=== PATIENT | female | born 1965 | race Two or more races ===

== ENCOUNTER 2017-12-24 06:20 | Inpatient (IN) | payer OTHER ==
[2017-12-12 15:35] LABS: BASOPHILS % (AUTO) 1.3 % (0.0-2.0); EOSINOPHILS % (AUTO) 2.2 % (0.0-3.0); HEMATOCRIT 44.9 % (37.0-47.0); HEMOGLOBIN 15.7 G/DL (12.0-16.0); LYMPHOCYTES % (AUTO) 31.1 % (20.0-45.0); MEAN CORPUSCULAR VOLUME 87 FL (80-99); MONOCYTES % (AUTO) 6.4 % (1.0-10.0); PLATELET COUNT 229 K/UL (150-450); RED BLOOD COUNT 5.17 M/UL (4.20-5.40); RED CELL DISTRIBUTION WIDTH 12.3 % (11.6-14.8); WHITE BLOOD COUNT 5.1 K/UL (4.8-10.8)
[2017-12-12 15:37] LABS: APPEARANCE,URINE CLEAR; BILIRUBIN, URINE NEGATIVE (NEGATIVE); COLOR,URINE PALE YELLOW; GLUCOSE, URINE (UA) 4+ (NEGATIVE); KETONES,URINE NEGATIVE (NEGATIVE); LEUKOCYTE ESTERASE ,URINE NEGATIVE (NEGATIVE); NITRITE,URINE NEGATIVE (NEGATIVE); PH,URINE 7 (4.5-8.0); PROTEIN,URINE NEGATIVE (NEGATIVE); UROBILINOGEN,URINE NORMAL MG/DL (0.0-1.0)
[2017-12-12 16:07] LABS: ALANINE AMINOTRANSFERASE 40 U/L (12-78); ALBUMIN 4.9 G/DL (3.4-5.0); ALBUMIN/GLOBULIN RATIO 1.3 (1.0-2.7); ALKALINE PHOSPHATASE 80 U/L (46-116); ANION GAP 9 mmol/L (5-15); ASPARTATE AMINO TRANSFERASE 17 U/L (15-37); BILIRUBIN,TOTAL 0.2 MG/DL (0.2-1.0); BLOOD UREA NITROGEN 10 mg/dL (7-18); CALCIUM 10.5 MG/DL (8.5-10.1); CARBON DIOXIDE 30 MMOL/L (21-32); CHLORIDE 98 MMOL/L (98-107); CREATININE 0.8 MG/DL (0.55-1.30); INR 0.9 (0.9-1.1); PHOSPHORUS 4.1 MG/DL (2.5-4.9); POTASSIUM 4.3 MMOL/L (3.5-5.1); SODIUM 137 MMOL/L (136-145)
--- NOTE | 2017-12-12 16:59 | Diagnostic Imaging Report ---
Indication: Dyspnea Comparison: None 2 views of the chest obtained. Findings: No definite infiltrate or pulmonary vascular congestion identified. The heart is borderline enlarged. The aorta is mildly enlarged consistent with atherosclerotic vascular disease. Lung volumes are low. The bones are unremarkable. Cholecystectomy clips noted. Impression: No acute disease
[~2017-12-24] VITALS: Ht 157.5 cm; Wt 74.8 kg
[2017-12-24] VITALS (13 sets, daily range): BP systolic 113–139; BP diastolic 46–80
[~2017-12-24 06:20] MED LIST: Acetaminophen (Non formulary) 100 ML IV ONE; Atropine Inj 1mg/10ml Syr IV PRN; DiphenhydrAMINE 50mg/ml Inj IVP PRN; HYDROcodone/Acetamin 7.5/325 tab ORAL PRN; Hydromorphone 0.5mg/0.5ml inj IVP PRN; Ketorolac 30mg Inj IV PRN; LORazepam Inj 2mg/ml 1ml IV PRN; LR 1000ml 1,000 ML IVLG SCH; Labetalol 5mg/ml 20ml vial IV PRN; Midazolam 2mg/2ml Inj IVP PRN; Norco 5mg/325mg tab ORAL PRN; fentaNYL 100 mcg/2 mL IV PRN; oxyCODONE HCL/Acetaminophen 5/325mg ORAL PRN
[2017-12-24] MEDS ORDERED: ceFAZolin sod 2 GM in D5W 110 ML IVPB ONE (07:00)
[2017-12-24] MEDS ORDERED: Bacitracin Oint 15gm Tube TOPIC ONE (07:04)
[2017-12-24] MEDS ORDERED: Gelfoam Absorbable 1gm powder pkt TOPIC ONE (07:04)
[2017-12-24] MEDS ORDERED: Thrombin 5000 units spray kit TOPIC ONE (07:04)
[2017-12-24] MEDS ORDERED: Thrombin 5000 units TOPIC ONE (07:04)
[2017-12-24] MEDS ORDERED: Vancomycin 1gm inj IVPB ONE (07:04)
[2017-12-24] MEDS ORDERED: EPINEPHrine 1mg/1ml Amp ONE (07:05)
[2017-12-24] MEDS ORDERED: Bupivacaine 0.5% Inj 30 ml vial INJ ONE (07:05)
[2017-12-24] MEDS ORDERED: Bacitracin 50000 Units Vial ONE (07:05)
[2017-12-24] MEDS ORDERED: METFORMIN HCL1000 M3 PO (07:09)
[2017-12-24] MEDS ORDERED: AMITRIPTYLINE100 MG ORAL (07:09)
[2017-12-24] MEDS ORDERED: JARDIANCE PO (07:09)
[2017-12-24] MEDS ORDERED: LISINOPRIL10 MG ORAL (07:09)
[2017-12-24] MEDS ORDERED: GLIPIZIDE10 MG PO (07:09)
--- NOTE | 2017-12-24 07:25 | Anethesia Preoperative Eval ---
Anesthesia Pre-op PMH/ROS General Date of Evaluation: Dec 24, 2017 Time of Evaluation: 08:11 Anesthesiologist: Amanda ASA Score: ASA 3 Mallampati Score Class I : Soft palate, uvula, fauces, pillars visible Class II: Soft palate, uvula, fauces visible Class III: Soft palate, base of uvula visible Class IV: Only hard plate visible Mallampati Classification: Class II Surgeon: Jayesh Diagnosis: Neck Pain Surgical Procedure: PSF C4-7, L ForaminotomyC4-5, C6-7 Anesthesia History: none Family History: no anesthesia problems Allergies: Coded Allergies: CODEINE (Verified Allergy, Severe, 12/24/17) itching, vomiting LATEX (Verified Allergy, Severe, 12/23/17) SKIN RASH,HIVES PENICILLINS (Verified Allergy, Severe, 12/23/17) RASH,ITCHING Medications: see eMAR Past Medical History Cardiovascular: Reports: HTN, other - HL Neurologic/Psychiatric: Reports: other - Migranes Endocrine: Reports: DM Other: obesity PSxH Narrative: Cholecystectomy, Uterine Polyp, C/S Anesthesia Pre-op Phys. Exam Physician Exam Vital Signs Date Time Temp Pulse Resp B/P (MAP) Pulse Ox O2 Delivery O2 Flow Rate FiO2 12/24/17 07:34 97.0 65 19 125/62 96 Room Air 97.0 Constitutional: NAD Neurologic: CN 2-12 intact Cardiovascular: RRR Respiratory: CTA Gastrointestinal: S/NT/ND Airway Exam Mallampati Score: Class II MO: full ROM: limited Teeth: intact Anesthesia Pre-op A/P Risk Assessment & Plan Assessment: ASA 3 Plan: GA, BIS, GlideScope Status Change Before Surgery: No Pre-Antibiotics Dru Grams Ancef IV Given Within 1 Hr of Incision: Yes Time Given: 08:46 Jose Guadalupe Patel MD Dec 24, 2017 07:25
--- NOTE | 2017-12-24 07:27 | Immediate Post-Op Evaluation ---
Immediate Post-Op Evalulation Immediate Post-Op Evalulation Procedure: PSF C4-7, L ForaminotomyC4-5, C6-7 Date of Evaluation: Dec 24, 2017 Time of Evaluation: 13:40 IV Fluids: 1000 LR Blood Products: 0 Estimated Blood Loss: 100 Urinary Output: 300 Blood Pressure Systolic: 122 Blood Pressure Diastolic: 52 Pulse Rate: 87 Respiratory Rate: 16 O2 Sat by Pulse Oximetry: 98 Temperature (Fahrenheit): 97.6 Pain Score (1-10): 3 Nausea: No Vomiting: No Complications 0 Patient Status: awake, reacts, patent, extubated, none Hydration Status: adequate Dru grams Ancef IV Given Within 1 Hr of Incision: Yes Time Given: 08:46 Jose Guadalupe Patel MD Dec 24, 2017 07:27
[2017-12-24] MEDS ORDERED: NS 275ml ONE (08:00)
[2017-12-24] MEDS ORDERED: Ketamine 500mg Inj ONE (08:00)
[2017-12-24] MEDS ORDERED: Zemuron 50mg/5ml Inj IV ONE (08:00)
[2017-12-24] MEDS ORDERED: fentaNYL 100 mcg/2 mL IV ONE (08:00)
[2017-12-24] MEDS ORDERED: Sterile Water Irrig 1000ml IRRIG ONE (08:00)
[2017-12-24] MEDS ORDERED: Propofol 1,000mg/ 100ml btl IV ONE (08:00)
[2017-12-24] MEDS ORDERED: NS Irrig 1000ml ONE (08:00)
[2017-12-24] MEDS ORDERED: Lidocaine 1% MPF 10mg/ml 5ml ONE (08:00)
[2017-12-24] MEDS ORDERED: Lidocaine 1% Plain 30 ml INJ ONE (08:00)
[2017-12-24] MEDS ORDERED: Midazolam 2mg/2ml Inj ONE (08:00)
[2017-12-24] MEDS ORDERED: LR 1000ml ONE (08:00)
--- NOTE | 2017-12-24 08:20 | Pre-Procedure Note/Attestation ---
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 I attest that, if there was a reasonable possibility of needing a blood transfusion, the patient (or the patient's legal enrollment eligibility representative) was given the [facility] standardized written summary, pursuant to the Jose Marmarth Blood Safety Act ([place] Health and Safety Code # 1645, as amended). I attest that I re-evaluated the patient just prior to the surgery and that there has been no change in the patient's H&P, except as documented below: DANIELLE MARIN Dec 24, 2017 08:20
[2017-12-24] MEDS ORDERED: NS Irrig 1000ml IRRIG ONE (12:00)
[2017-12-24] MEDS ORDERED: Milk of Magnesia 30ml Ud ORAL PRN (13:00)
--- NOTE | 2017-12-24 13:04 | Brief Operative Note ---
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 c34 b laminectomy. [id number] left laminoforaminotomy Surgeon: jeannie Retail Product Advisor: nick strauss pac Anesthesiologist: heraclio Wong Anesthesia: general Specimen: yes - bone Complications: none Condition: stable Fluids: 1000 Estimated Blood Loss: minimal Drains: hemovac Implant(s) used?: Yes - spinal elements psf, bacterin bone DANIELLE MARIN Dec 24, 2017 13:04
[2017-12-24] MEDS ORDERED: Norco 5mg/325mg tab ORAL PRN (13:15)
[2017-12-24] MEDS ORDERED: oxyCODONE HCL/Acetaminophen 5/325mg ORAL PRN (13:15)
[2017-12-24] MEDS ORDERED: fentaNYL 100 mcg/2 mL IV PRN (13:15)
[2017-12-24] MEDS ORDERED: Naloxone 0.4mg/ml Inj IVP PRN (13:15)
[2017-12-24] MEDS ORDERED: PCA HYDROmorphone 1mg/ml 30 ML IV PRN (13:15)
[2017-12-24] MEDS ORDERED: LORazepam 1mg tab ORAL PRN (13:15)
[2017-12-24] MEDS ORDERED: Rate Change PCA 1 Each MISC PRN (13:15)
[2017-12-24] MEDS ORDERED: DiphenhydrAMINE 50mg/ml Inj IVP PRN ×2 (13:15)
[2017-12-24] MEDS ORDERED: LORazepam Inj 2mg/ml 1ml IV PRN (13:15)
[2017-12-24] MEDS ORDERED: Labetalol 5mg/ml 20ml vial IV PRN (13:15)
[2017-12-24] MEDS ORDERED: LR 1000ml 1,000 ML IVLG SCH (13:15)
[2017-12-24] MEDS ORDERED: Midazolam 2mg/2ml Inj IVP PRN (13:15)
[2017-12-24] MEDS ORDERED: Atropine Inj 1mg/10ml Syr IV PRN (13:15)
[2017-12-24] MEDS ORDERED: Ketorolac 30mg Inj IV PRN ×2 (13:15)
[2017-12-24] MEDS ORDERED: HYDROcodone/Acetamin 7.5/325 tab ORAL PRN (13:15)
[2017-12-24] MEDS: Hydromorphone 0.5mg/0.5ml inj IVP PRN ×2 (14:01→14:27)
--- NOTE | 2017-12-24 14:37 | Diagnostic Imaging Report ---
Indication: Cervical fusion Findings: Fluoroscopic views of the cervical spine were obtained. Images showing placement of posterior fusion apparatus C4-C7. The lower part of the hardware is not well seen. There is also anterior compression plate is well. Total fluoroscopic time 45 seconds. 6 fluoroscopic images obtained. IMPRESSION: Intraoperative imaging
[2017-12-24] MEDS ORDERED: D5 1/2NS 1,000 ML IV SCH (15:15)
[2017-12-24] MEDS ORDERED: PCA Education Pamphlet MISC ONE (17:00)
[2017-12-24] MEDS: ceFAZolin sod 1 GM in NS 55 ML IV SCH (17:04)
[2017-12-24] MEDS: Docusate 100mg cap ORAL SCH (17:21)
[2017-12-24] MEDS: Docusate Sod/Senna tab ORAL SCH (17:21)
[2017-12-24] MEDS: PCA shift volume MISC SCH (19:24)
[2017-12-24] MEDS ORDERED: Chloraseptic Spray 20mL Bottle ORAL PRN (21:00)
[2017-12-24] MEDS ORDERED: TransDerm Scop 1mg/72HR Patch TDERMAL ONE (21:00)
[2017-12-24] MEDS: Amitriptyline 100mg tab ORAL SCH (21:26)
[2017-12-24] MEDS: NovoLOG Insulin Flexpen SUBQ SCH (21:30)
[2017-12-25] VITALS: BP 153/76
[2017-12-25] MEDS: ceFAZolin sod 1 GM in NS 55 ML IV SCH ×2 (00:18→08:43)
--- NOTE | 2017-12-25 00:30 | Operative Note - Dictated ---
DATE OF OPERATION: 12/24/2017 SURGEON: Austin Mcconnell M.D. SENIOR UI WEB DEVELOPER: Junior Sierra PA-C. ANESTHESIA: Jose Guadalupe Patel M.D. ANESTHESIA TYPE: General endotracheal anesthesia. PREOPERATIVE DIAGNOSES: 1. Disk protrusion, C3-C4, with stenosis. 2. Status post spinal fusion (anterior cervical diskectomy and fusion), C4-C5, C5-C6, and C6-C7. 3. Central stenosis, C3-C4, and left side C4-C5, C5-C6, and C6-C7. OPERATION PERFORMED: 1. Posterior spinal fusion with segmental instrumentation (lateral mass screws at C4, C5, C6, and C7). 2. Use of lateral mass screws (spinal elements). 3. Laminal foraminotomy, left side, C4-C5, C5-C6, C6-C7. 4. Laminotomy, bilateral, C3 inferior one half and C4 superior one half. 5. Exploration of fusion. 6. Use of fluoroscopy for localization. 7. Use of operating microscope. 8. Neurodiagnostic monitoring. 9. Use of local autograft and Bacterin bone allograft for fusion purposes. ESTIMATED BLOOD LOSS: 200 mL. COMPLICATIONS: None. FLUIDS: One liter. INDICATIONS: The patient is a very pleasant 52-year-old with status post ACDF, C4, C5, C6, C7, status post prior fusion with presumed pseudoarthrosis. She has radiculopathic pain in both upper extremities, but primarily on the left. On initial MRIs, stenosis at C4-C5 and C6-C7, however, on subsequent MRI, C5-C6 was also noted to be tight. There appears to be a central protrusion at C3-C4 with redundant ligamentum flavum and stenosis at the C3-C4 level. Original plan was to decompress C4-C5 and C6-C7, however, based on new MRI, the C4-C5, C5-C6, C6-C7 as well, laminotomy bilateral at C3-C4 was recommended. Although, the disk at C3-C4 is compromised, if this required extending the fusion, which we elected not to perform. Pros, cons, risks, and benefits were discussed. The patient elected to proceed. The patient was explained in detail risks and benefits of surgery to include but not be limited to those of bleeding, infection, damage to nerves or vessels or tendons, anesthetic risk, allergic reaction, aspiration, and possibly . The patient understood and wished to proceed. OPERATIVE PROCEDURE IN DETAIL: The patient was taken to the operative suite. After general endotracheal anesthesia was obtained, Crespo catheter was placed. Palmer pins were applied. The patient was turned prone onto a radiolucent table and attached securely to the Palmer headrest. The knees were bent and she was properly and securely positioned on the table. At this point, the posterior neck was prepped and draped in the usual sterile fashion. The patient received 10 mL of lidocaine with epinephrine. The incision was carried out midline from C2 through T1. Subperiosteal dissection was performed. Fluoroscopically, the levels were verified. Once the subperiosteal dissection was carried out, the facet joints at C4-C5, C5-C6, and C6-C7 were denuded of capsular material. At this point, the right side was first addressed and the pilot control operator holes for the lateral mass screws at C4 and C5 were placed. C6 was skipped. C7 had very abnormal pedicular anatomy and therefore, it was elected to place very short and obliquely oriented lateral mass screws for fixation. Once all screw holes were made, a 12 mm screw hole was drilled at C4-C5 and 10 mm screw hole at C7. The appropriate-sized screws were all placed. In an identical fashion, the pilot control operator holes on the left side were made. Inspection of the fusion was noted and there was micro movement at each and every level. At this point, we elected to perform the laminotomies at L3 and superior portion of L4 care being taken to preserve the interspinous ligament. This was performed using standard technique by drilling out the leading edge of the C3 lamina and the superior edge of C4 lamina. Ligamentum flavum was removed in piecemeal fashion. Decompression of the spinal cord was clearly achieved. Ligamentum flavum was removed in piecemeal fashion using a combination of curved curettes and micro Kerrison punches. Once satisfied with this, the C4-C5 level was next inspected. A high-speed drill was used to perform a laminal foraminotomy by thinning out the lamina as well as facet joints at these levels. The neuroforamen was noted to be markedly compressed. Decompression was taken just past the midportion of the lateral mass at the C4-C5 level on the left side. This process was then repeated in an identical fashion at C5-C6 and at C6-C7. Once satisfied with all the decompression, copious irrigation was performed. Meticulous hemostasis was achieved. The screws were then placed at C4, C5, and C7 identical to the contralateral right side. Fluoroscopically, screw positioning was checked and noted to be appropriate. Please note that prior to screw placement, a pedicle ball-tip probe was used to inspect the hole and excellent bony position with bony endpoint was noted. At this point, once satisfied with all the screw positioning, decortication on the right side was achieved using a high-speed drill. Appropriate-sized 60 mm rods were then cut short to 55 mm, contoured, and applied to the screw heads. Locking caps were then applied and torqued to the appropriate level. A strip of Bacterin bone as well as local autograft from the prior laminal foraminotomies was then packed into the facet joints as an onlay to the lamina of C4, C5, C6, and C7 on the right side. Once satisfied with bone grafting, instrumentation, fusion, and locking of the rods, decision was made to close. Medium-sized Hemovac drain was placed deep to the fascia. A 1 g of vancomycin was split two-thirds subfascial and one-third suprafascial. The fascia was repaired using #1 Vicryl and subcutaneous tissue closure using 2-0 Vicryl. Sterile dressing and Dermabond was applied. At this point, Palmer was detached from the bed. The patient was turned supine onto a [facility] hospital bed. Palmer pins were removed and pressure applied. Hemostasis was noted with no bleeding. The patient was subsequently extubated and transferred to recovery room in stable condition. Sponge and needle counts were correct. Austin Mcconnell M.D. DR: Armand JOB#: [id number] CC:
[2017-12-25 04:00] VITALS: BP 125/68
--- NOTE | 2017-12-25 05:15 | Consultation ---
DATE OF CONSULTATION: 12/24/2017 ACUTE PAIN MANAGEMENT PHYSICIAN PROGRESS NOTE CONSULTING PHYSICIAN: Raul Dudley M.D. REFERRING PHYSICIAN: Austin Mcconnell M.D. HISTORY OF PRESENT ILLNESS: Dear Dr. Austin Mcconnell, Thank you kindly for consulting me to evaluate and render an opinion as to how to proceed in the management of the patient's acute postoperative cervical spine pain after revision cervical spine instrumentation surgery. The patient also had severe postoperative nausea and vomiting. She already received multiple doses of Dilaudid as well as Zofran, but still states that her pain level is 9/10 and has a breakthrough emesis through Zofran trials. With this severe pain and nausea issues, you consulted me for acute pain consultation. The patient injured her cervical spine in a work-related injury and required multi-level cervical spine instrumentation surgery today. I saw the patient at the bedside with the nurse, NICK Delcid. I performed a detailed history and physical examination. I spent over 75 minutes in consultation with an additional 30 minutes in medical record review. I reviewed multiple records from the patient's medical chart including utilization review and surgical authorization by [facility] authorizing surgery as certified. Multiple records were reviewed from the hospitalist and preoperative Dr. Rockwell dated 12/12/2017 including history and physical, laboratory studies, 12-lead EKG, and chest x-ray. Multiple records were reviewed from today's date of surgery at on 12/24/2017 including consent for surgical treatment, consent for anesthesia, consent for blood products, medication administration record, medication reconciliation order form, PACU record, PACU orders, MUFFLER TENDER order sheet, MUFFLER TENDER analgesia flow sheet, guidelines for prophylactic antibiotics, guidelines for DVT prophylaxis, postoperative spine surgical orders, and postoperative surgery report by Dr. Mcconnell, initial nursing assessment, 24-hour medical/surgical flow sheet, anesthesia record, and pre and post anesthesia evaluation record. PAST MEDICAL HISTORY: 1. Acute postoperative cervical spine pain, status post multiple level posterior cervical spine surgery by Dr. Austin Mcconnell in November 2017. 2. Work-related injury. 3. Severe postoperative nausea and vomiting. 4. Chronic migraine headaches. 5. Insomnia. 6. Hypertension. 7. Diabetes. 8. History of peptic ulcer disease. PAST SURGICAL HISTORY: Cholecystectomy, left ankle surgery, ACDF in May 2016, and ? section. MEDICATIONS AT HOME: Elavil 100 mg at bedtime, glipizide, lisinopril, and metformin. ALLERGIES: The patient has multiple drug intolerances including codeine, hydrocodone, and tramadol. The patient also reports hives with penicillin and itching with latex. She denies any previous history using oxycodone. SOCIAL HISTORY: The patient lives at home with her . She denies tobacco, alcohol, or illicit drug use. FAMILY HISTORY: Noncontributory. PHYSICAL EXAMINATION: VITAL SIGNS: Age 52. Height 5 feet 5 inches. Weight 165 pounds. Body mass index 27. Afebrile. Pain level 9/10 on the visual analog pain scale. Pulse 84, respirations 18, blood pressure 120/80, and oxygen saturation 99% on supplemental oxygen. HEENT: Leonard collar in place. Hemovac drain holding suction. Significant discomfort with range of motion of the neck. The patient's swallowing, breathing, and phonating within normal limits. Normocephalic and atraumatic. Extraocular muscles intact. Pupils equal, round, reactive, and accommodative. No Ramos's palsy. No Yemi syndrome. EXTREMITIES: Moving all extremities x4. A 5/5 dorsiflexion and 5/5 plantar flexion in bilateral lower extremities. NEUROLOGIC: Detailed neurologic exam per Dr. Austin Mcconnell. CHEST: Clear to auscultation. HEART: Regular rate and rhythm. BREASTS: Deferred to Dr. Rockwell. GENITOURINARY: Crespo catheter in place. Deferred to Dr. Rockwell. LABORATORY AND DIAGNOSTIC DATA: Diagnostic testing shows 12-lead EKG, normal sinus rhythm. Preoperative chest x-ray on 12/12/2017, no acute cardiopulmonary disease. Laboratory studies from 12/12/2017, sodium 137, potassium 4.3, chloride 98, bicarb 30, BUN 10, creatinine 0.8, glucose 160, calcium 10.5, phosphorus 4.1, and magnesium 2.0. Total bilirubin 0.2. AST 17 and ALT 40. Total protein 8.7. Albumin 4.9. Alkaline phosphatase 80. White count 5, hematocrit 44, and platelets 230,000. INR 0.9. PTT 27. Urinalysis with 4+ glucose. IMPRESSION: 1. Acute postoperative cervical spine pain, status post multiple level posterior cervical spine surgery by Dr. Austin Mcconnell in November 2017. 2. Work-related injury. 3. Severe postoperative nausea and vomiting. 4. Chronic migraine headaches. 5. Insomnia. 6. Hypertension. 7. Diabetes. 8. History of peptic ulcer disease. TREATMENT AND RECOMMENDATIONS: The patient is having active emesis with large volumes. I would restart her IV fluids at 125 mL an hour for adequate hydration. She will have a Crespo catheter in place. We will monitor her intravascular volume. Currently, there is good urine output, although the urine color appears to be concentrated. The patient denies any glaucoma symptoms. I have asked the nurse to place a scopolamine patch. The patient has multiple drug intolerances. She earlier mentioned to codeine. She also now states that she cannot tolerate hydrocodone, [place], or Ultram. I have discontinued these medications from her postoperative medication administration record. I have added a trial of oxycodone 5 mg instant release every three hours p.r.n. for moderate pain. I have switched over her parenteral breakthrough medicine to intramuscular morphine. I would hope that the intramuscular route may have left emetogenic effects than the current MUFFLER TENDER Dilaudid unit, which has been set up. I would continue the MUFFLER TENDER at this time. However, I have changed the setting to a 10-minute lockout interval with 0.2 mg demand dose for better safety profile. I have asked the nurse to bolus the patient with an intramuscular dose of Phenergan. The patient has failed a dose of Zofran so far. I have increased the frequency of Zofran to q.4 hours, may be with the scopolamine patch and the Phenergan, the Zofran may be more effective. I will restart the patient's Elavil for her chronic headaches. I have also added p.r.n. dose of Fioricet one tablet orally every 8 hours p.r.n. as a rescue headache agent. I have ordered Chloraseptic spray to the bedside to help with sore throat complaints. I have ordered Flexeril 10 mg orally as an antispasm agent. If the opioids continued to be poorly tolerated, at least the Flexeril may help as a sedating agent and with some anti-spasm treatment. I have added Benadryl 25 mg orally every 6 hours in case of any itching complaints. The patient does have a history of peptic ulcer disease. I have ordered Protonix 40 mg nightly with a p.r.n. dose of Mylanta 30 mL q.6 hours in case of any GERD symptom exacerbation. I have ordered incentive spirometer to encourage good pulmonary toilet and help reduce the risk of postoperative pneumonia and atelectasis. I will defer DVT prophylaxis to the surgical team. Raul Dudley M.D. DR: KAYLI JOB#: [id number] CC:
[2017-12-25] MEDS: NovoLOG Insulin Flexpen SUBQ SCH ×4 (06:40→20:43)
--- NOTE | 2017-12-25 07:04 | 48 Hour Post Anesthesia Eval ---
Post Anesthesia Evaluation Procedure: PSF C4-7, L ForaminotomyC4-5, C6-7 Date of Evaluation: Dec 25, 2017 Time of Evaluation: 06:00 Blood Pressure Systolic: 125 0: 68 Pulse Rate: 76 Respiratory Rate: 18 Temperature (Fahrenheit): 98.8 O2 Sat by Pulse Oximetry: 92 Airway: patent Nausea: No Vomiting: No Pain Intensity: 0 Hydration Status: adequate Cardiopulmonary Status: at baseline Mental Status/LOC: patient returned to baseline Post-Anesthesia Complications: 0 Follow-up care needed: N/A - further care as per primary team ELZA TUCKER M.D. Dec 25, 2017 07:04
[2017-12-25] MEDS: PCA shift volume MISC SCH ×2 (07:11→20:14)
[2017-12-25 07:30] LABS: BASOPHILS % (AUTO) 0.6 % (0.0-2.0); EOSINOPHILS % (AUTO) 0.5 % (0.0-3.0); HEMATOCRIT 34.3 % (37.0-47.0); HEMOGLOBIN 12.2 G/DL (12.0-16.0); LYMPHOCYTES % (AUTO) 12.4 % (20.0-45.0); MEAN CORPUSCULAR VOLUME 86 FL (80-99); MONOCYTES % (AUTO) 6.8 % (1.0-10.0); NEUTROPHILS % (AUTO) 79.7 % (45.0-75.0); PLATELET COUNT 199 K/UL (150-450); RED BLOOD COUNT 3.97 M/UL (4.20-5.40); RED CELL DISTRIBUTION WIDTH 12.2 % (11.6-14.8); WHITE BLOOD COUNT 7.8 K/UL (4.8-10.8)
[2017-12-25 08:00] VITALS: BP 159/74
--- NOTE | 2017-12-25 08:20 | Orthopedic Spine Progress Note ---
Ortho Spine - Progress Note Subjective Symptoms: c/o post-op neck pain, improved - as compared to pre-op Objective Vital Signs: Last 24 Hour Vital Signs Date Time Temp Pulse Resp B/P (MAP) Pulse Ox O2 Delivery O2 Flow Rate FiO2 12/25/17 07:04 209.8 76 18 92 12/25/17 04:00 98.8 76 18 125/68 92 98.8 12/25/17 04:00 16 12/25/17 00:00 97.4 70 18 153/76 100 97.4 12/25/17 00:00 16 12/24/17 20:00 16 12/24/17 20:00 97.4 66 18 139/69 100 97.4 12/24/17 16:00 98.4 84 18 120/80 99 Nasal Cannula 2.0 98.4 12/24/17 15:49 16 12/24/17 15:30 98.6 84 18 124/64 99 Nasal Cannula 3.0 98.6 12/24/17 15:19 18 12/24/17 15:00 98.4 72 18 120/60 98 Nasal Cannula 3.0 98.4 12/24/17 14:55 98.6 12/24/17 14:45 18 12/24/17 14:40 98.6 83 15 118/55 97 Nasal Cannula 3.0 98.6 12/24/17 14:30 15 12/24/17 14:27 97.6 12/24/17 14:25 85 13 120/52 97 Nasal Cannula 3.0 12/24/17 14:15 14 12/24/17 14:15 85 20 120/57 97 Nasal Cannula 3.0 12/24/17 14:01 98.3 12/24/17 14:00 22 12/24/17 13:55 84 14 113/51 97 Nasal Cannula 3.0 12/24/17 13:45 80 33 121/53 93 Nasal Cannula 3.0 12/24/17 13:45 98.3 12/24/17 13:45 21 12/24/17 13:39 78 18 123/62 98 Simple Mask 6.0 12/24/17 13:34 87 16 119/64 98 Simple Mask 6.0 88 12/24/17 13:31 207.7 87 16 98 12/24/17 13:29 97.6 88 24 118/46 97 Simple Mask 6.0 97.6 88 I&O: Intake and Output 12/24/17 12/25/17 19:00 07:00 Intake Total 1440 ml 1512.5 ml Output Total 1000 ml 2045 ml Balance 440 ml -532.5 ml Intake Oral 240 ml 320 ml IV Total 1200 ml 1192.5 ml Output Urine Total 825 ml 1325 ml Emesis 650 ml Drainage Total 75 ml 70 ml Estimated Blood Loss 100 ml Wound: clean, intact Drains: hemovac Neuro Status: stable - but feels stronger in hands Assessment Procedure Performed: c4-7 psf, instrumentation. c34 b laminectomy. c4567 left laminoforaminotomy Plan Plan: PT, pain management, continue drain, discharge plan - request rehab postop DANIELLE MARIN Dec 25, 2017 08:20
[2017-12-25] MEDS: metFORMIN 500mg tab ORAL SCH ×2 (08:45→17:56)
[2017-12-25] MEDS: Lisinopril 10mg tab ORAL SCH (08:46)
[2017-12-25] MEDS: Docusate Sod/Senna tab ORAL SCH ×2 (08:46→17:56)
[2017-12-25] MEDS: Docusate 100mg cap ORAL SCH ×2 (08:46→17:56)
--- NOTE | 2017-12-25 12:18 | Internal Med Progress Note ---
Subjective Date of Service: Dec 25, 2017 Physician Name JimenezIjeoma munguia Attending Physician Austin Mcconnell Current Medications Medications (Trade) Dose Ordered Sig/Annmarie Route PRN Reason Start Time Stop Time Status Last Admin Dose Admin Acetaminophen (Tylenol) 650 mg Q4H PRN ORAL temp>101 12/24/17 21:15 01/23/18 15:59 Acetaminophen/ Butalbital/ Caffeine (Fioricet) 1 tab Q8H PRN ORAL headache 12/24/17 21:00 01/23/18 20:59 Al Hydroxide/Mg Hydroxide (Mylanta) 30 ml Q6H PRN ORAL GERD 12/24/17 21:00 01/23/18 20:59 Amitriptyline HCl (Elavil) 100 mg BEDTIME ORAL 12/24/17 21:00 01/23/18 20:59 12/24/17 21:26 Cyclobenzaprine HCl (Flexeril) 10 mg Q8HR PRN ORAL Muscle Spasm 12/24/17 21:00 01/23/18 20:59 Dextrose (Dextrose 50%) STAT PRN IV Hypoglycemia 12/24/17 20:30 01/23/18 20:29 Diphenhydramine HCl (Benadryl) 25 mg Q6H PRN ORAL Itching 12/24/17 21:00 01/23/18 20:59 Docusate Sodium (Colace) 100 mg TWICE A DAY ORAL 12/24/17 18:00 01/23/18 17:59 12/25/17 08:46 Hydromorphone HCl 30 ml @ 0 mls/hr Q24H PRN IV For Pain 12/25/17 21:13 12/27/17 21:12 Insulin Aspart (NovoLOG) BEFORE MEALS AND HS SUBQ 12/24/17 21:00 01/23/18 20:59 12/25/17 06:40 Lisinopril (Zestril) 10 mg DAILY ORAL 12/25/17 09:00 01/24/18 08:59 12/25/17 08:46 Magnesium Hydroxide (Mom) 30 ml Q6H PRN ORAL Constipation 12/24/17 13:00 01/23/18 12:59 Metformin HCl (Glucophage) 1,000 mg BID ORAL 12/25/17 09:00 01/24/18 08:59 12/25/17 08:45 Miscellaneous Medication (SUSHI CHEF Rate Change) 1 ea DAILY PRN MISC rate change 12/24/17 13:15 12/26/17 13:14 Miscellaneous Medication (SUSHI CHEF shift volume) 1 ea Q12HR@0700,1900 MISC 12/24/17 19:00 12/26/17 18:59 12/25/17 07:11 Morphine Sulfate (Morphine Sulfate) 4 mg Q3H PRN IM Severe Breakthru Pain (>7) 12/24/17 21:00 12/31/17 20:59 Naloxone HCl (Narcan) 0.1 mg Q1M PRN IVP RR<10/min OR SBP<90 mmHg 12/24/17 13:15 12/26/17 13:14 Non-Formulary Medication (Non-Formulary Med) 1 ea DAILY ORAL 12/25/17 09:00 01/24/18 08:59 UNV Ondansetron HCl (Zofran) 4 mg Q4HR PRN IVP Nausea & Vomiting 12/24/17 21:00 01/23/18 20:59 12/25/17 03:08 Oxycodone HCl (Roxicodone) 5 mg Q4H PRN ORAL Mild Pain (Pain Scale 1-3) 12/24/17 21:00 12/31/17 20:59 Pantoprazole (Protonix) 40 mg BEDTIME ORAL 12/24/17 21:00 01/23/18 20:59 12/24/17 21:26 Phenol/Menthol (Chloraseptic) 1 spray Q3H PRN ORAL SORE THROAT 12/24/17 21:00 01/23/18 20:59 Promethazine HCl (Phenergan) 12.5 mg Q8HR PRN IM Nausea & Vomiting 12/24/17 21:00 01/23/18 20:59 12/25/17 05:21 Senna/Docusate Sodium (Hedy-Colace) 1 tab TWICE A DAY ORAL 12/24/17 18:00 01/23/18 17:59 12/25/17 08:46 Sodium Chloride 1,000 ml @ 125 mls/hr Q8H IV 12/24/17 21:00 01/23/18 20:59 12/25/17 05:02 Temazepam (Restoril) 7.5 mg HSPRN PRN ORAL Insomnia 12/24/17 13:15 12/26/17 13:14 Allergies: Coded Allergies: CODEINE (Verified Allergy, Severe, 12/24/17) itching, vomiting LATEX (Verified Allergy, Severe, 12/23/17) SKIN RASH,HIVES PENICILLINS (Verified Allergy, Severe, 12/23/17) RASH,ITCHING ROS Limited/Unobtainable: No Constitutional: Reports: no symptoms HEENT: Reports: no symptoms Cardiovascular: Reports: no symptoms Respiratory: Reports: no symptoms Gastrointestinal/Abdominal: Reports: nausea, vomiting Genitourinary: Reports: no symptoms Neurologic/Psychiatric: Reports: no symptoms Subjective 52 YO F with cervical spine stenosis, S/P cervical spine fusion and, foraminotomy and laminectomy 12/24/17. Cover for Int Med-Dr Rockwell. Objective Last Vital Signs Date Time Temp Pulse Resp B/P (MAP) Pulse Ox O2 Delivery O2 Flow Rate FiO2 12/25/17 08:46 159/79 12/25/17 08:00 97.6 79 20 Room Air 97.6 12/25/17 07:04 92 12/24/17 16:00 2.0 General Appearance: WD/WN, alert, moderate distress EENT: PERRL/EOMI, normal ENT inspection Neck: pain on motion, stiff neck, tenderness Cardiovascular: normal peripheral pulses, normal rate, regular rhythm, no gallop/murmur, no JVD Respiratory/Chest: chest wall non-tender, lungs clear, normal breath sounds, no respiratory distress, no accessory muscle use Abdomen: normal bowel sounds, non tender, soft, no organomegaly, no mass Extremities: normal range of motion Neurologic: animal damage control agent II-XII grossly normal, no motor/sensory deficits Skin: normal pigmentation, warm/dry Laboratory Tests Test 12/25/17 06:40 White Blood Count 7.8 K/UL (4.8-10.8) Red Blood Count 3.97 M/UL (4.20-5.40) L Hemoglobin 12.2 G/DL (12.0-16.0) Hematocrit 34.3 % (37.0-47.0) L Mean Corpuscular Volume 86 FL (80-99) Mean Corpuscular Hemoglobin 30.7 PG (27.0-31.0) Mean Corpuscular Hemoglobin Concent 35.5 G/DL (32.0-36.0) Red Cell Distribution Width 12.2 % (11.6-14.8) Platelet Count 199 K/UL (150-450) Mean Platelet Volume 7.3 FL (6.5-10.1) Neutrophils (%) (Auto) 79.7 % (45.0-75.0) H Lymphocytes (%) (Auto) 12.4 % (20.0-45.0) L Monocytes (%) (Auto) 6.8 % (1.0-10.0) Eosinophils (%) (Auto) 0.5 % (0.0-3.0) Basophils (%) (Auto) 0.6 % (0.0-2.0) Microbiology Date/Time Source Procedure Growth Status 12/24/17 15:00 Indwelling Cath Urine Culture - Preliminary NO GROWTH Resulted Intake and Output 12/24/17 12/25/17 19:00 07:00 Intake Total 1440 ml 1512.5 ml Output Total 1000 ml 2045 ml Balance 440 ml -532.5 ml Intake Oral 240 ml 320 ml IV Total 1200 ml 1192.5 ml Output Urine Total 825 ml 1325 ml Emesis 650 ml Drainage Total 75 ml 70 ml Estimated Blood Loss 100 ml Assessment/Plan Problem List: (1) Cervical spine pain Assessment & Plan: Post op. Continue dilaudid SUSHI CHEF per surgery. (2) Hypertension Assessment & Plan: Continue lisinopril. (3) Diabetes mellitus, type II Assessment & Plan: Cont glucophage. Hold glipizide until tolerating PO diet. Continue novolog sliding scale. (4) Peptic ulcer disease Assessment & Plan: Continue protonix (5) Migraine headache (6) Spinal stenosis of cervical region Assessment & Plan: S/P cervical spine fusion C4-7, foraminotomy and laminectomy 12/24/[address] Valente. Status: not improved IJEOMA JIMENEZ Dec 25, 2017 12:18
[2017-12-25 12:21] VITALS: BP 148/79
[2017-12-25 16:00] VITALS: BP 137/77
[2017-12-25 20:20] VITALS: BP 151/79
[2017-12-25] MEDS: Amitriptyline 100mg tab ORAL SCH (20:32)
[2017-12-25] MEDS ORDERED: PCA HYDROmorphone 1mg/ml 30 ML IV PRN (21:13)
--- NOTE | 2017-12-25 22:01 | Progress Note ---
DATE: 12/25/2017 ACUTE PAIN MANAGEMENT PHYSICIAN PROGRESS NOTE. MEDICATIONS: Medication administration record reviewed. Medications include IV fluids, Colace, maria elena-Colace, Elavil, Protonix, Glucophage, Zestril, sliding scale insulin, IV fluids, milk of magnesia, Restoril, Dilaudid ASSOCIATION EXECUTIVE, Benadryl, Phenergan, Mylanta, Fioricet, Flexeril, Chloraseptic spray, oxycodone intramuscular, morphine, Tylenol. LABORATORY STUDIES: From this morning, 12/25/2017 shows white count 8, hematocrit 34, platelets 199. PHYSICAL EXAMINATION: VITAL SIGNS: Within normal limits. Afebrile, pulse 80, respirations 20, blood pressure 148/79, oxygen saturation 99% on room air. I saw the patient at the bedside with her . Last night, we applied a scopolamine patch to her and her nausea symptoms have thankfully improved considerably. She is now able to use the Dilaudid ASSOCIATION EXECUTIVE for analgesia. I would continue the ASSOCIATION EXECUTIVE for now. She also has several p.r.n. pain medications available which I ordered, including oral Fioricet, oral Flexeril, intramuscular morphine, and oral oxycodone. I will continue the breakthrough rescue antiemetics including p.r.n. Zofran and Phenergan. The patient has been able to ambulate out of bed to the restroom. By report from the nurses, the patient was already preauthorized for transfer to rehabilitation by the insurance carrier and Dr. Mcconnell's surgical office. The information systems planner is working with the insurance carrier to locate place into [place] [facility], likely on Saturday11/29/2017, per the family caseworker Annette, at extension [phone]. At this time, I would continue with her current analgesic plan. Overnight her Hemovac drain output was over 50 mL and continues to have moderate drainage today. I will continue to keep the indwelling cervical spine drain catheter in place for now. Raul Dudley M.D. DR: Giovanni JOB#: [id number] CC:
[2017-12-26] VITALS: BP 151/79
[2017-12-26 04:00] VITALS: BP 154/79
[2017-12-26] MEDS: NovoLOG Insulin Flexpen SUBQ SCH ×4 (06:20→20:29)
[2017-12-26] MEDS: Morphine Sulfate 4mg/ml Inj IM PRN (06:28)
[2017-12-26 07:03] LABS: BASOPHILS % (AUTO) 0.7 % (0.0-2.0); EOSINOPHILS % (AUTO) 0.6 % (0.0-3.0); HEMATOCRIT 36.3 % (37.0-47.0); HEMOGLOBIN 12.9 G/DL (12.0-16.0); LYMPHOCYTES % (AUTO) 16.3 % (20.0-45.0); MEAN CORPUSCULAR VOLUME 87 FL (80-99); MONOCYTES % (AUTO) 7.5 % (1.0-10.0); NEUTROPHILS % (AUTO) 74.8 % (45.0-75.0); PLATELET COUNT 192 K/UL (150-450); RED BLOOD COUNT 4.17 M/UL (4.20-5.40); RED CELL DISTRIBUTION WIDTH 12.2 % (11.6-14.8); WHITE BLOOD COUNT 8.4 K/UL (4.8-10.8)
[2017-12-26 08:00] VITALS: BP 118/59
[2017-12-26 08:23] LABS: ANION GAP 9 mmol/L (5-15); BLOOD UREA NITROGEN 9 mg/dL (7-18); CALCIUM 9.5 MG/DL (8.5-10.1); CARBON DIOXIDE 30 MMOL/L (21-32); CHLORIDE 101 MMOL/L (98-107); CREATININE 0.6 MG/DL (0.55-1.30); SODIUM 140 MMOL/L (136-145)
[2017-12-26] MEDS: metFORMIN 500mg tab ORAL SCH ×2 (08:52→18:33)
[2017-12-26] MEDS: Lisinopril 10mg tab ORAL SCH (08:53)
[2017-12-26] MEDS: Docusate 100mg cap ORAL SCH ×2 (08:53→18:33)
[2017-12-26] MEDS: Docusate Sod/Senna tab ORAL SCH ×2 (08:53→18:33)
[2017-12-26] MEDS: JARDIANCE 25 MG ORAL SCH (08:54)
[2017-12-26] MEDS: Cyclobenzaprine 10mg Tab ORAL PRN (08:54)
[2017-12-26 12:00] VITALS: BP 151/79
[2017-12-26] MEDS: oxyCODONE 5mg IR tab ORAL PRN ×3 (13:07→23:16)
[2017-12-26] MEDS ORDERED: traMADol 50mg tab ORAL PRN (13:15)
--- NOTE | 2017-12-26 15:45 | Progress Note ---
DATE: 12/26/2017 ACUTE PAIN MANAGEMENT PHYSICIAN PROGRESS NOTE The patient has been tolerating her Dilaudid SCREEN MAKING TECHNICIAN without any nausea symptoms overnight. At this point, I would recommend to discontinue the SCREEN MAKING TECHNICIAN Dilaudid and to use the breakthrough p.r.n. doses of intramuscular morphine. She also has p.r.n. oral doses of Flexeril, oxycodone, and plain Tylenol to use as well in addition to Fioricet in case of any headache complaints. I believe transitioning off of the SCREEN MAKING TECHNICIAN unit at this time will help ease her transition for hospital discharge tomorrow. MEDICATIONS: Medication administration record reviewed. Medications include Colace, Hedy-Colace, Elavil, Protonix, Glucophage, Zestril, and sliding-scale insulin. P.r.n. medications include milk of magnesia, Benadryl, Dilaudid SCREEN MAKING TECHNICIAN, Phenergan, Mylanta, Fioricet, Chloraseptic, Flexeril, morphine, Roxicodone, Zofran, and Tylenol. LABORATORY DATA: Laboratory studies from this morning are pending. Yesterday's labs from 12/25/2017, shows white count 8, hematocrit 34, platelets 199. Sodium 137, potassium 4.3, chloride 98, bicarb 30, BUN 10, creatinine 0.8, glucose 160, calcium 10.5, phosphorus 4.1, magnesium 2.0, and total bilirubin 0.2. AST 17, ALT 40, and alkaline phosphatase 80. Total protein 8.7. Albumin 4.9. OBJECTIVE: VITAL SIGNS: Afebrile. Respiratory rate 20, blood pressure 154/79, and oxygen saturation 98% on room air. I saw the patient at the bedside with the nurse RN, Bhavin. The patient has been moving in and out of bed with assistance to the restroom. She still appears generally weak globally without any focal neurologic deficits. The patient is breathing, swallowing, and phonating within normal limits. The patient is advancing her diet and her nausea symptoms have improved. She continues to have the scopolamine patch in place. With the nurse at the bedside, I had the patient sit forward so we could remove the [place] collar and examine the posterior cervical spine wound. I removed the cervical spine wound dressing showing the incision line clean and dry with no evidence for any erythema or exudate. The drain hole site appeared clean and dry as well. Output from the indwelling posterior cervical spine drain catheter overnight was 20 mL. With the Hemovac drain taken off of suction and at the end-expiration, I personally removed the indwelling posterior cervical spine drain catheter. The tip was intact. Alcohol swab was applied generously to the drain hole site. Finally, a sterile 4 x 4 gauze was applied over the incision line and the drain hole site followed by sterile Tegaderm dressings. The Arthur collar was replaced without any complications. The case management will continue to work with rehabilitation facilities for expected transfer tomorrow per the surgeon. Raul Dudley M.D. DR: BRANDEN JOB#: [id number] CC: ANGELIQUE
[2017-12-26 16:00] VITALS: BP 135/76
--- NOTE | 2017-12-26 16:34 | Internal Med Progress Note ---
Subjective Date of Service: Dec 26, 2017 Physician Name JimenezIjeoma munguia Attending Physician Austin Mcconnell Current Medications Medications (Trade) Dose Ordered Sig/Annmarie Route PRN Reason Start Time Stop Time Status Last Admin Dose Admin Acetaminophen (Tylenol) 650 mg Q4H PRN ORAL temp>101 12/24/17 21:15 01/23/18 15:59 Acetaminophen/ Butalbital/ Caffeine (Fioricet) 1 tab Q8H PRN ORAL headache 12/24/17 21:00 01/23/18 20:59 Al Hydroxide/Mg Hydroxide (Mylanta) 30 ml Q6H PRN ORAL GERD 12/24/17 21:00 01/23/18 20:59 Amitriptyline HCl (Elavil) 100 mg BEDTIME ORAL 12/24/17 21:00 01/23/18 20:59 12/25/17 20:32 Cyclobenzaprine HCl (Flexeril) 10 mg Q8HR PRN ORAL Muscle Spasm 12/24/17 21:00 01/23/18 20:59 12/26/17 08:54 Dextrose (Dextrose 50%) STAT PRN IV Hypoglycemia 12/24/17 20:30 01/23/18 20:29 Diphenhydramine HCl (Benadryl) 25 mg Q6H PRN ORAL Itching 12/24/17 21:00 01/23/18 20:59 Docusate Sodium (Colace) 100 mg TWICE A DAY ORAL 12/24/17 18:00 01/23/18 17:59 12/26/17 08:53 Insulin Aspart (NovoLOG) BEFORE MEALS AND HS SUBQ 12/24/17 21:00 01/23/18 20:59 12/26/17 12:54 Lisinopril (Zestril) 10 mg DAILY ORAL 12/25/17 09:00 01/24/18 08:59 12/26/17 08:53 Magnesium Hydroxide (Mom) 30 ml Q6H PRN ORAL Constipation 12/24/17 13:00 01/23/18 12:59 Metformin HCl (Glucophage) 1,000 mg BID ORAL 12/25/17 09:00 01/24/18 08:59 12/26/17 08:52 Morphine Sulfate (Morphine Sulfate) 4 mg Q3H PRN IM Severe Breakthru Pain (>7) 12/24/17 21:00 12/31/17 20:59 12/26/17 06:28 Ondansetron HCl (Zofran) 4 mg Q4HR PRN IVP Nausea & Vomiting 12/24/17 21:00 01/23/18 20:59 12/26/17 03:15 Oxycodone HCl (Roxicodone) 5 mg Q4H PRN ORAL Mild Pain (Pain Scale 1-3) 12/24/17 21:00 12/31/17 20:59 12/26/17 13:07 Pantoprazole (Protonix) 40 mg BEDTIME ORAL 12/24/17 21:00 01/23/18 20:59 12/25/17 20:31 Patient Own Medication (Patient's Own Med) 1 ea DAILY ORAL 12/26/17 09:00 01/25/18 08:59 12/26/17 08:54 Phenol/Menthol (Chloraseptic) 1 spray Q3H PRN ORAL SORE THROAT 12/24/17 21:00 01/23/18 20:59 Promethazine HCl (Phenergan) 12.5 mg Q8HR PRN IM Nausea & Vomiting 12/24/17 21:00 01/23/18 20:59 12/25/17 05:21 Senna/Docusate Sodium (Hedy-Colace) 1 tab TWICE A DAY ORAL 12/24/17 18:00 01/23/18 17:59 12/26/17 08:53 Allergies: Coded Allergies: CODEINE (Verified Allergy, Severe, 12/24/17) itching, vomiting LATEX (Verified Allergy, Severe, 12/23/17) SKIN RASH,HIVES PENICILLINS (Verified Allergy, Severe, 12/23/17) RASH,ITCHING ROS Limited/Unobtainable: No Constitutional: Reports: no symptoms HEENT: Reports: no symptoms Cardiovascular: Reports: no symptoms Respiratory: Reports: no symptoms Gastrointestinal/Abdominal: Reports: no symptoms Genitourinary: Reports: no symptoms Neurologic/Psychiatric: Reports: no symptoms Subjective 52 YO F with cervical spine stenosis, S/P cervical spine fusion and, foraminotomy and laminectomy 12/24/17. Cover for Int Manuel-Dr Rockwell. Objective Last Vital Signs Date Time Temp Pulse Resp B/P (MAP) Pulse Ox O2 Delivery O2 Flow Rate FiO2 12/26/17 12:00 98.4 90 19 151/79 98 98.4 12/26/17 08:00 Room Air 12/24/17 16:00 2.0 Laboratory Tests Test 12/26/17 06:20 White Blood Count 8.4 K/UL (4.8-10.8) Red Blood Count 4.17 M/UL (4.20-5.40) L Hemoglobin 12.9 G/DL (12.0-16.0) Hematocrit 36.3 % (37.0-47.0) L Mean Corpuscular Volume 87 FL (80-99) Mean Corpuscular Hemoglobin 30.9 PG (27.0-31.0) Mean Corpuscular Hemoglobin Concent 35.5 G/DL (32.0-36.0) Red Cell Distribution Width 12.2 % (11.6-14.8) Platelet Count 192 K/UL (150-450) Mean Platelet Volume 7.3 FL (6.5-10.1) Neutrophils (%) (Auto) 74.8 % (45.0-75.0) Lymphocytes (%) (Auto) 16.3 % (20.0-45.0) L Monocytes (%) (Auto) 7.5 % (1.0-10.0) Eosinophils (%) (Auto) 0.6 % (0.0-3.0) Basophils (%) (Auto) 0.7 % (0.0-2.0) Sodium Level 140 MMOL/L (136-145) Potassium Level 4.0 MMOL/L (3.5-5.1) Chloride Level 101 MMOL/L (98-107) Carbon Dioxide Level 30 MMOL/L (21-32) Anion Gap 9 mmol/L (5-15) Blood Urea Nitrogen 9 mg/dL (7-18) Creatinine 0.6 MG/DL (0.55-1.30) Estimat Glomerular Filtration Rate > 60 mL/min (>60) Glucose Level 123 MG/DL (74-106) H Calcium Level 9.5 MG/DL (8.5-10.1) Microbiology Date/Time Source Procedure Growth Status 12/24/17 07:10 Nasal Nares MRSA Culture - Final NO METHICILLIN RESISTANT STAPH AUREUS... Complete 12/24/17 15:00 Indwelling Cath Urine Culture - Preliminary NO GROWTH AFTER 24 HOURS Resulted Intake and Output 12/25/17 12/26/17 19:00 07:00 Intake Total 2425 ml 1062.5 ml Output Total 20 ml Balance 2425 ml 1042.5 ml Intake Oral 800 ml 500 ml IV Total 1625 ml 562.5 ml Drainage Total 20 ml # Voids 3 5 # Bowel Movements 1 Objective General Appearance: WD/WN, alert, moderate distress EENT: PERRL/EOMI, normal ENT inspection Neck: pain on motion, stiff neck, tenderness Cardiovascular: normal peripheral pulses, normal rate, regular rhythm, no gallop/murmur, no JVD Respiratory/Chest: chest wall non-tender, lungs clear, normal breath sounds, no respiratory distress, no accessory muscle use Abdomen: normal bowel sounds, non tender, soft, no organomegaly, no mass Extremities: normal range of motion Neurologic: telesales team leader II-XII grossly normal, no motor/sensory deficits Skin: normal pigmentation, warm/dry Assessment/Plan Problem List: (1) Cervical spine pain Assessment & Plan: Post op. Continue dilaudid TRIAL MANAGEMENT ASSOCIATE per surgery. (2) Hypertension Assessment & Plan: Continue lisinopril. (3) Diabetes mellitus, type II Assessment & Plan: Cont glucophage. Hold glipizide until tolerating PO diet. Continue novolog sliding scale. (4) Peptic ulcer disease Assessment & Plan: Continue protonix (5) Migraine headache (6) Spinal stenosis of cervical region Assessment & Plan: S/P cervical spine fusion C4-7, foraminotomy and laminectomy 12/24/[address] Valente. Status: progressing IJEOMA JIMENEZ Dec 26, 2017 16:34
[2017-12-26 20:00] VITALS: BP 139/74
[2017-12-26] MEDS: Amitriptyline 100mg tab ORAL SCH (20:22)
--- NOTE | 2017-12-26 23:30 | Progress Note ---
DATE: 12/26/2017 ADDENDUM ACUTE PAIN MANAGEMENT PHYSICIAN PROGRESS NOTE The patient has been tolerating her Dilaudid OIL REFINERY OPERATOR without any nausea symptoms overnight. At this point, I would recommend to discontinue the OIL REFINERY OPERATOR Dilaudid and to use the breakthrough p.r.n. doses of intramuscular morphine. She also has p.r.n. oral doses of Flexeril, oxycodone, and plain Tylenol to use as well in addition to Fioricet in case of any headache complaints. I believe transitioning off of the OIL REFINERY OPERATOR unit at this time will help ease her transition for hospital discharge tomorrow. Raul Dudley M.D. DR: BRANDEN JOB#: [id number] CC:
[2017-12-27] VITALS: BP 134/76
[2017-12-27 04:00] VITALS: BP 136/67
[2017-12-27] MEDS: NovoLOG Insulin Flexpen SUBQ SCH ×3 (06:32→16:30)
[2017-12-27] MEDS: oxyCODONE 5mg IR tab ORAL PRN (06:58)
[2017-12-27] MEDS: Cyclobenzaprine 10mg Tab ORAL PRN (07:57)
[2017-12-27] MEDS: metFORMIN 500mg tab ORAL SCH (07:59)
[2017-12-27] MEDS: Lisinopril 10mg tab ORAL SCH (07:59)
[2017-12-27] MEDS: JARDIANCE 25 MG ORAL SCH (07:59)
[2017-12-27] MEDS: Docusate Sod/Senna tab ORAL SCH (07:59)
[2017-12-27] MEDS: Docusate 100mg cap ORAL SCH (07:59)
[2017-12-27 08:07] LABS: BASOPHILS % (AUTO) 0.8 % (0.0-2.0); EOSINOPHILS % (AUTO) 1.7 % (0.0-3.0); HEMATOCRIT 38.8 % (37.0-47.0); HEMOGLOBIN 13.4 G/DL (12.0-16.0); LYMPHOCYTES % (AUTO) 22.2 % (20.0-45.0); MEAN CORPUSCULAR VOLUME 86 FL (80-99); MONOCYTES % (AUTO) 8.3 % (1.0-10.0); PLATELET COUNT 232 K/UL (150-450); RED BLOOD COUNT 4.52 M/UL (4.20-5.40); WHITE BLOOD COUNT 8.4 K/UL (4.8-10.8)
[2017-12-27 08:18] LABS: ANION GAP 10 mmol/L (5-15); BLOOD UREA NITROGEN 12 mg/dL (7-18); CALCIUM 9.8 MG/DL (8.5-10.1); CARBON DIOXIDE 29 MMOL/L (21-32); CHLORIDE 97 MMOL/L (98-107); CREATININE 0.7 MG/DL (0.55-1.30); POTASSIUM 3.5 MMOL/L (3.5-5.1); SODIUM 136 MMOL/L (136-145)
[2017-12-27 08:37] VITALS: BP 114/70
[2017-12-27] MEDS: Morphine Sulfate 4mg/ml Inj IM PRN (08:51)
[2017-12-27 12:00] VITALS: BP 120/60
[2017-12-27 12:56] VITALS: BP 120/60
[2017-12-27 16:00] VITALS: BP 121/73
--- NOTE | 2017-12-27 16:00 | Progress Note ---
DATE: 12/27/2017 ACUTE PAIN MANAGEMENT PHYSICIAN PROGRESS NOTE MEDICATIONS: Medication administration record reviewed. Medications include Hedy-Colace, Phenergan, Chloraseptic spray, Protonix, Roxicodone, Zofran, morphine, Glucophage, milk of magnesia, Zestril, diabetic medications, Colace, Benadryl, Flexeril, Elavil, Mylanta, Fioricet, and Tylenol. LABORATORY STUDIES: From this morning, December 27, 2017 shows normal white count of 8, hematocrit 39, and platelets 232. Sodium 136, potassium 3.5, chloride 97, bicarbonate 29, BUN 12, creatinine 0.7, glucose 150, and calcium 9.8. OBJECTIVE: VITAL SIGNS: Within normal limits. Afebrile. Pulse 89, respirations 20, blood pressure 114/70, and oxygen saturation 93% on room air. I saw the patient at the bedside with her . I discussed the case with the nurse RN, Kavon. The patient is sitting in a chair this morning. She complains that the [place] collar is hurting her at the incision site. This is normal from the [place] collar with the posterior cervical spine incision. I did reassure the patient and encouraged her to use the [place] collar whenever she is out of the chair or out of bed. I tried to explain her the purpose of the [place] collar with this to stabilize the weight of her head so that her neck muscles can relax somewhat to aid the healing process. The patient asked for a soft collar, which I stated was really ineffective after this considerable posterior surgery. The patient was reassured and agreed to be compliant. The patient continues to use her incentive spirometer with good effect. Transfer to the rehabilitation center should be occurred later today once the housing case manager and space planner have communicated with the insurance carrier in the rehabilitation facility. We will continue with the current analgesic regimen as listed above with oral pills as well as the intramuscular morphine as long as the patient is here in the hospital. The patient is tolerating diet. The patient denies any headaches, shortness of breath, or chest pain. I see no contraindications for transfer from the hospital whenever bed is available. Raul Dudley M.D. DR: BRANDEN JOB#: [id number] CC:
--- NOTE | 2017-12-27 16:53 | Internal Med Progress Note ---
Subjective Date of Service: Dec 27, 2017 Physician Name JimenezIjeoma munguia Attending Physician Austin Mcconnell Current Medications Medications (Trade) Dose Ordered Sig/Annmarie Route PRN Reason Start Time Stop Time Status Last Admin Dose Admin Acetaminophen (Tylenol) 650 mg Q4H PRN ORAL temp>101 12/24/17 21:15 01/23/18 15:59 Acetaminophen/ Butalbital/ Caffeine (Fioricet) 1 tab Q8H PRN ORAL headache 12/24/17 21:00 01/23/18 20:59 Al Hydroxide/Mg Hydroxide (Mylanta) 30 ml Q6H PRN ORAL GERD 12/24/17 21:00 01/23/18 20:59 Amitriptyline HCl (Elavil) 100 mg BEDTIME ORAL 12/24/17 21:00 01/23/18 20:59 12/26/17 20:22 Cyclobenzaprine HCl (Flexeril) 10 mg Q8HR PRN ORAL Muscle Spasm 12/24/17 21:00 01/23/18 20:59 12/27/17 07:57 Dextrose (Dextrose 50%) STAT PRN IV Hypoglycemia 12/24/17 20:30 01/23/18 20:29 Diphenhydramine HCl (Benadryl) 25 mg Q6H PRN ORAL Itching 12/24/17 21:00 01/23/18 20:59 Docusate Sodium (Colace) 100 mg TWICE A DAY ORAL 12/24/17 18:00 01/23/18 17:59 12/27/17 07:59 Insulin Aspart (NovoLOG) BEFORE MEALS AND HS SUBQ 12/24/17 21:00 01/23/18 20:59 12/27/17 12:26 Lisinopril (Zestril) 10 mg DAILY ORAL 12/25/17 09:00 01/24/18 08:59 12/27/17 07:59 Magnesium Hydroxide (Mom) 30 ml Q6H PRN ORAL Constipation 12/24/17 13:00 01/23/18 12:59 Metformin HCl (Glucophage) 1,000 mg BID ORAL 12/25/17 09:00 01/24/18 08:59 12/27/17 07:59 Morphine Sulfate (Morphine Sulfate) 4 mg Q3H PRN IM Severe Breakthru Pain (>7) 12/24/17 21:00 12/31/17 20:59 12/27/17 08:51 Ondansetron HCl (Zofran) 4 mg Q4HR PRN IVP Nausea & Vomiting 12/24/17 21:00 01/23/18 20:59 12/26/17 03:15 Oxycodone HCl (Roxicodone) 5 mg Q4H PRN ORAL Mild Pain (Pain Scale 1-3) 12/24/17 21:00 12/31/17 20:59 12/27/17 06:58 Pantoprazole (Protonix) 40 mg BEDTIME ORAL 12/24/17 21:00 01/23/18 20:59 12/26/17 20:22 Patient Own Medication (Patient's Own Med) 1 ea DAILY ORAL 12/26/17 09:00 01/25/18 08:59 12/27/17 07:59 Phenol/Menthol (Chloraseptic) 1 spray Q3H PRN ORAL SORE THROAT 12/24/17 21:00 01/23/18 20:59 Promethazine HCl (Phenergan) 12.5 mg Q8HR PRN IM Nausea & Vomiting 12/24/17 21:00 01/23/18 20:59 12/25/17 05:21 Senna/Docusate Sodium (Hedy-Colace) 1 tab TWICE A DAY ORAL 12/24/17 18:00 01/23/18 17:59 12/27/17 07:59 Allergies: Coded Allergies: CODEINE (Verified Allergy, Severe, 12/24/17) itching, vomiting LATEX (Verified Allergy, Severe, 12/23/17) SKIN RASH,HIVES PENICILLINS (Verified Allergy, Severe, 12/23/17) RASH,ITCHING ROS Limited/Unobtainable: No Constitutional: Reports: no symptoms HEENT: Reports: no symptoms Cardiovascular: Reports: no symptoms Respiratory: Reports: no symptoms Gastrointestinal/Abdominal: Reports: no symptoms Genitourinary: Reports: no symptoms Neurologic/Psychiatric: Reports: no symptoms Subjective 52 YO F with cervical spine stenosis, S/P cervical spine fusion and, foraminotomy and laminectomy 12/24/17. Cover for Int Manuel-Dr Rockwell. Objective Last Vital Signs Date Time Temp Pulse Resp B/P (MAP) Pulse Ox O2 Delivery O2 Flow Rate FiO2 12/27/17 12:56 97.8 87 18 120/60 87 Room Air 97.8 12/24/17 16:00 2.0 Laboratory Tests Test 12/27/17 06:35 White Blood Count 8.4 K/UL (4.8-10.8) Red Blood Count 4.52 M/UL (4.20-5.40) Hemoglobin 13.4 G/DL (12.0-16.0) Hematocrit 38.8 % (37.0-47.0) Mean Corpuscular Volume 86 FL (80-99) Mean Corpuscular Hemoglobin 29.6 PG (27.0-31.0) Mean Corpuscular Hemoglobin Concent 34.4 G/DL (32.0-36.0) Red Cell Distribution Width 12.0 % (11.6-14.8) Platelet Count 232 K/UL (150-450) Mean Platelet Volume 7.7 FL (6.5-10.1) Neutrophils (%) (Auto) 67.0 % (45.0-75.0) Lymphocytes (%) (Auto) 22.2 % (20.0-45.0) Monocytes (%) (Auto) 8.3 % (1.0-10.0) Eosinophils (%) (Auto) 1.7 % (0.0-3.0) Basophils (%) (Auto) 0.8 % (0.0-2.0) Sodium Level 136 MMOL/L (136-145) Potassium Level 3.5 MMOL/L (3.5-5.1) Chloride Level 97 MMOL/L (98-107) L Carbon Dioxide Level 29 MMOL/L (21-32) Anion Gap 10 mmol/L (5-15) Blood Urea Nitrogen 12 mg/dL (7-18) Creatinine 0.7 MG/DL (0.55-1.30) Estimat Glomerular Filtration Rate > 60 mL/min (>60) Glucose Level 150 MG/DL (74-106) H Calcium Level 9.8 MG/DL (8.5-10.1) Intake and Output 12/26/17 12/27/17 19:00 07:00 Intake Total 450 ml 240 ml Balance 450 ml 240 ml Intake Oral 450 ml 240 ml # Voids 2 3 Objective General Appearance: WD/WN, alert, moderate distress EENT: PERRL/EOMI, normal ENT inspection Neck: pain on motion, stiff neck, tenderness Cardiovascular: normal peripheral pulses, normal rate, regular rhythm, no gallop/murmur, no JVD Respiratory/Chest: chest wall non-tender, lungs clear, normal breath sounds, no respiratory distress, no accessory muscle use Abdomen: normal bowel sounds, non tender, soft, no organomegaly, no mass Extremities: normal range of motion Neurologic: brazer crawler torch II-XII grossly normal, no motor/sensory deficits Skin: normal pigmentation, warm/dry Assessment/Plan Problem List: (1) Cervical spine pain Assessment & Plan: Post op. Continue dilaudid REPRODUCTION ARTIST per surgery. (2) Hypertension Assessment & Plan: Continue lisinopril. (3) Diabetes mellitus, type II Assessment & Plan: Cont glucophage. Hold glipizide until tolerating PO diet. Continue novolog sliding scale. (4) Peptic ulcer disease Assessment & Plan: Continue protonix (5) Migraine headache (6) Spinal stenosis of cervical region Assessment & Plan: S/P cervical spine fusion C4-7, foraminotomy and laminectomy 12/24/[address] Valente. Status: stable Assessment/Plan Discharge to [facility] today IJEOMA JIMENEZ Dec 27, 2017 16:53
[2017-12-27] MEDS ORDERED: D5 1/2NS 1000ml IV ONE (16:59)
[2017-12-27] MEDS ORDERED: Tubing IV Secondary IV ONE (16:59)
--- NOTE | 2017-12-30 10:25 | Discharge Summary ---
Discharge Summary Hospital Course Date of Admission Dec 24, 2017 at 06:20 Date of Discharge Dec 27, 2017 at 17:00 Admitting Diagnosis sp ACDF C4-7 with pseudoarthrosis and residual stenosis Reason for Hospitalization: elective surgery YUSUF Pool is a 52 year old female who was admitted on Dec 24, 2017 at 06:20 for neck pain, sp ACDF C4-7 with pseudoarthrosis and residual stenosis Patient was admitted for elective surgery Consultations dr Dudley -pain specialist dr Rockwell-IM Procedures s/p 12/24/[address] Mcconnell 1. Posterior spinal fusion with segmental instrumentation (lateral mass screws at C4, C5, C6, and C7). 2. Use of lateral mass screws (spinal elements). 3. Laminal foraminotomy, left side, C4-C5, C5-C6, C6-C7. 4. Laminotomy, bilateral, C3 inferior one half and C4 superior one half. 5. Exploration of fusion. 6. Use of fluoroscopy for localization. 7. Use of operating microscope. 8. Neurodiagnostic monitoring. 9. Use of local autograft and Bacterin bone allograft for fusion purposes. Hospital Course s/p surgery course of recovery uneventful pain manageemtn pain specialist followed neovascular intact initially with Hemovac drain, output monitored closely, diminished, dc on 12/26 wound clean dressing C/D/I neck brace in ambulated with PT/OT, stable IS while it he bed, was taught and encouraged to use diet slowly started and addressed as tolerated Cepacol lozenges prn GI prophylaxis voided freely bowel regimen instituted BP management with GHANSHYAM, stable BS management with metformin and SSI prn, Glpizide on hold until fully tolerated diet Patient was stable for discharge to [facility] for continuation with rehab program FINAL DIAGNOSIS 1. Disk protrusion, C3-C4, with stenosis. 2. Status post spinal fusion (anterior cervical diskectomy and fusion), C4-C5, C5-C6, and C6-C7. 3.Central stenosis, C3-C4, and left side C4-C5, C5-C6, and C6-C7. 4 s/p C4-7 PSF, instrumentation. C34 bilateral laminectomy. [id number] left laminoforaminotomy 5.History of ACDF C4-7 with pseudoarthrosis and residual stenosis ( initial admitting diagnosis) 6. HTN 7. DM 8. PUD Discharge Medications Continued Medications: Amitriptyline HCl (Amitriptyline HCl) 100 Mg Tablet 100 MG ORAL BEDTIME, TAB Glipizide (Glipizide) 10 Mg Tablet 10 MG PO BIDAC, TAB Lisinopril* (Lisinopril*) 10 Mg Tablet 10 MG ORAL DAILY, TAB Metformin HCl (Metformin HCl ER) 1,000 Mg [id number] 1000 MG PO BID, TAB [Jardiance] () 25 PO Discharge Condition Upon Discharge: stable Discharge Disposition Patient was discharged to [facility] Discharge Diagnoses: Discharge Instructions Discharge Instructions Special Instructions I have been assigned to complete a D/C Summary on this account. I was not involved in the patient management Joanne Genoa NP (Vanchtein) Dec 30, 2017 10:25
== END 2017-12-27 17:00 | disposition short-term general hospital (02) | DRG 472 ==
LOC: SDSOVERFLO 06:20 → 3E 14:50
PROC: 4A11X4G Monitoring of Peripheral Nervous Electrical Activity, Intraoperative, External Approach (ICD-10-PCS; principal; 2017-12-24 08:00)
PROC: 0RG2071 Fusion of 2 or more Cervical Vertebral Joints with Autologous Tissue Substitute, Posterior Approach, Posterior Column, Open Approach (ICD-10-PCS; principal; 2017-12-24 08:00)
DX: M50.11 Cervical disc disorder with radiculopathy, high cervical region (principal); M96.0 Pseudarthrosis after fusion or arthrodesis; I10 Essential (primary) hypertension; M48.02 Spinal stenosis, cervical region; G89.18 Other acute postprocedural pain; R11.2 Nausea with vomiting, unspecified; E11.9 Type 2 diabetes mellitus without complications; E66.9 Obesity, unspecified; Z68.27 Body mass index [BMI] 27.0-27.9, adult; G43.909 Migraine, unspecified, not intractable, without status migrainosus
CPT/HCPCS: 36415; 71046; 72040; 76001; 80048; 80053; 81001; 82962; 83735; 84100; 85025; 85610; 85730; 86850; 86900; 86901; 87081; 87086; 94003; 94150; C9399; J1815; J2250; J2405